=== PATIENT | male | born 1940 | race Caucasian/White ===

== ENCOUNTER → 2017-08-21 | Outpatient (CLI) | payer MEDICARE, OTHER | END | disposition home or self-care (01) | LOC: CVU 08:05 | PROVIDERS: ATTEND Internal Medicine Cardiovascular Disease | DX: I65.23 Occlusion and stenosis of bilateral carotid arteries (principal); I10 Essential (primary) hypertension; E78.5 Hyperlipidemia, unspecified; Z87.891 Personal history of nicotine dependence | CPT/HCPCS: 93306; 93880 ==

== ENCOUNTER 2019-08-11 09:30 | Outpatient (CLI) | payer MEDICARE, OTHER | END 2019-08-11 23:59 | disposition home or self-care (01) | LOC: CFH 09:30 | PROVIDERS: ATTEND Internal Medicine Cardiovascular Disease | DX: I35.0 Nonrheumatic aortic (valve) stenosis (principal); I35.1 Nonrheumatic aortic (valve) insufficiency; I35.8 Other nonrheumatic aortic valve disorders; I11.9 Hypertensive heart disease without heart failure | CPT/HCPCS: 93306 ==

== ENCOUNTER 2019-10-02 09:54 | Outpatient (CLI) | payer MEDICARE, OTHER ==
[~2019-10-02] VITALS: Ht 175.3 cm; Wt 75.0 kg
[2019-10-02 11:05] LABS: ANION GAP 4 mmol/L (5-15); CHLORIDE 111 mmol/L (98-107)
[2019-10-02 11:07] LABS: CREATININE 1.31 mg/dL (0.7-1.3)
[2019-10-02] MEDS ORDERED: AMLO10TA8 PO (11:27)
[2019-10-02] MEDS ORDERED: FLUT1DIS IH (11:27)
[2019-10-02] MEDS ORDERED: VALS1TAB24 PO (11:27)
[2019-10-02 11:37] LABS: BASOPHILS # (AUTO) 0.03 x10^3/uL (0-0.1); BASOPHILS % (AUTO) 1 % (0-1); EOSINOPHILS # (AUTO) 0.16 x10^3/uL (0-0.4); EOSINOPHILS % (AUTO) 3 % (1-7); LYMPHOCYTES # (AUTO) 1.72 x10^3/uL (1-3.4); LYMPHOCYTES % (AUTO) 31 % (22-44); MD NO; MEAN CORPUSCULAR HEMOGLOBIN 31.3 pg (27.5-34.5); MEAN CORPUSCULAR HGB CONC 34.2 g/dL (33.2-36.2); MEAN CORPUSCULAR VOLUME 91.7 fL (81-97); MEAN PLATELET VOLUME 8.8 fL (7.4-10.4); MONOCYTES # (AUTO) 0.55 x10^3/uL (0.2-0.8); MONOCYTES % (AUTO) 10 % (2-9); NEUTROPHILS # (AUTO) 3.13 x10^3/uL (1.8-6.8); NEUTROPHILS % (AUTO) 56 % (42-75); PLATELET COUNT 243 x10^3/uL (130-400); RED CELL DISTRIBUTION WIDTH 13.8 % (9.4-14.8)
== END 2019-10-02 23:59 | disposition home or self-care (01) ==
LOC: STAR 09:54
PROVIDERS: ATTEND Internal Medicine Cardiovascular Disease
DX: Z01.810 Encounter for preprocedural cardiovascular examination (principal); I35.0 Nonrheumatic aortic (valve) stenosis
CPT/HCPCS: 36415; 80048; 85025

== ENCOUNTER 2019-10-05 10:44 | Day surgery (SDC) | payer MEDICARE, OTHER ==
[~2019-10-05] VITALS: Ht 175.3 cm; Wt 75.0 kg
[~2019-10-05 10:44] MED LIST: AMLO10TA8 PO; FLUT1DIS IH; VALS1TAB24 PO
[2019-10-05 10:57] VITALS: BP 149/72
[2019-10-05] MEDS ORDERED: CHOLEAST PO (11:24)
[2019-10-05] MEDS ORDERED: CARDIO B PO (11:24)
[2019-10-05] MEDS ORDERED: THYR65TA2 PO (11:24)
[2019-10-05] MEDS ORDERED: ALBU8.5H8 INH (11:24)
[2019-10-05] MEDS ORDERED: OMEG1CAP23 PO (11:24)
[2019-10-05] MEDS ORDERED: NIAC-1 PO (11:24)
[2019-10-05] MEDS ORDERED: CYAN250013 PO (11:24)
[2019-10-05] MEDS ORDERED: CHOL5000 PO (11:24)
[2019-10-05] MEDS ORDERED: [UNRECOGNIZED DRUG - OTHER] PO (11:24)
[2019-10-05] MEDS ORDERED: [UNRECOGNIZED DRUG - OTHER] PO (11:24)
[2019-10-05] MEDS ORDERED: PRAS25CA PO (11:24)
[2019-10-05] MEDS ORDERED: LEVO500C3 PO (11:24)
[2019-10-05] MEDS ORDERED: VERAPAMIL 2.5 MG/ML, 2ML ONE (12:15)
[2019-10-05] MEDS ORDERED: MIDAZOLAM 1 MG/ML, 5ML ONE (12:15)
[2019-10-05] MEDS ORDERED: FENTANYL PF 100 MCG/2ML ONE (12:15)
[2019-10-05] MEDS ORDERED: HEPARIN 1,000 UNITS/ML, 10ML ONE (12:16)
[2019-10-05] MEDS ORDERED: LIDOCAINE-MPF 1%, 5ML ONE (12:16)
[2019-10-05] MEDS ORDERED: SODIUM CHLORIDE 0.9% 1,000 ML IV SCH (13:01)
== END 2019-10-05 14:45 | disposition home or self-care (01) ==
LOC: CACL 10:44
PROVIDERS: ATTEND Internal Medicine Cardiovascular Disease
DX: I35.0 Nonrheumatic aortic (valve) stenosis (principal); I10 Essential (primary) hypertension; J45.909 Unspecified asthma, uncomplicated; Z88.8 Allergy status to other drugs, medicaments and biological substances
CPT/HCPCS: 93454; 99156; C1769; C1894; J1644; J2250; J3010; Q9967

== ENCOUNTER → 2019-10-12 | Outpatient (CLI) | payer MEDICARE, OTHER ==
[~2019-10-12] MED LIST changes: +ALBU8.5H8 INH; +CARDIO B PO; +CHOL5000 PO; +CHOLEAST PO; +CYAN250013 PO; +LEVO500C3 PO; +NIAC-1 PO; +OMEG1CAP23 PO; +PRAS25CA PO; +THYR65TA2 PO; -VALS1TAB24 PO; +VALS1TAB25 PO; +[UNRECOGNIZED DRUG - OTHER] PO; +[UNRECOGNIZED DRUG - OTHER] PO
== END | disposition home or self-care (01) ==
LOC: RAD 10:34
PROVIDERS: ATTEND Internal Medicine Cardiovascular Disease
DX: I65.23 Occlusion and stenosis of bilateral carotid arteries (principal); I25.10 Atherosclerotic heart disease of native coronary artery without angina pectoris; I35.0 Nonrheumatic aortic (valve) stenosis; I70.0 Atherosclerosis of aorta; N28.89 Other specified disorders of kidney and ureter; K57.30 Diverticulosis of large intestine without perforation or abscess without bleeding; M47.816 Spondylosis without myelopathy or radiculopathy, lumbar region; I10 Essential (primary) hypertension; E78.5 Hyperlipidemia, unspecified; Z79.899 Other long term (current) drug therapy
CPT/HCPCS: 71250; 74176; 93880; 94060; 94726; 94729

== ENCOUNTER → 2019-11-12 | Outpatient (CLI) | payer MEDICARE, OTHER ==
[~2019-11-12] MED LIST changes: +ASPI81TA45 PO; +CLOP75TA PO; +PHYT100T PO
== END | disposition home or self-care (01) ==
LOC: CVU 11:14
PROVIDERS: ATTEND Internal Medicine Cardiovascular Disease
DX: I05.1 Rheumatic mitral insufficiency (principal); I11.9 Hypertensive heart disease without heart failure; I31.3 Pericardial effusion (noninflammatory); I27.20 Pulmonary hypertension, unspecified
CPT/HCPCS: 93306; 93356